=== PATIENT | female | born 1950 | race Two or more races ===

== ENCOUNTER 2023-01-14 07:45 | Emergency (ER) | payer OTHER ==
[2023-01-14 08:05] VITALS: BP 151/81; PULSE 67; RESP 18; TEMP 98.2; BMI 32.5
[2023-01-14] MEDS ORDERED: SODIUM CHLORIDE 1,000 ML IV STA (08:21)
[2023-01-14] MEDS ORDERED: ONDANSETRON 4 MG/2 ML VIAL IVPUSH ONE (08:21)
[2023-01-14] MEDS ORDERED: ACETAMINOPHEN 1000 MG/100 ML BAG IVPB ONE (08:21)
[2023-01-14] MEDS ORDERED: ACETAMINOPHEN INJECTION 100 ML IVPB ONE (08:23)
[2023-01-14] MEDS ORDERED: ONDANSETRON 4 MG/2 ML VIAL ONE (08:23)
[2023-01-14 08:32] LABS: HEMATOCRIT 37.7 % (32.4-45.2); HEMOGLOBIN 12.5 G/dL (10.7-15.3); MCH 28.4 pg (25.7-33.7); MCHC 33.2 g/dl (32.0-36.0); MEAN CELL VOLUME 85.6 fl (80-96); MEAN PLT VOLUME 9.9 fl (7.5-11.1); PLATELET COUNT 188.4 10^3/uL (134-434); RBC 4.41 10^6/uL (3.60-5.2); RDW 14.4 % (11.6-15.6); WHITE BLOOD COUNT 8.7 10^3/uL (4.0-10.8)
[2023-01-14 08:36] LABS: ALBUMIN 4.5 g/dl (3.4-5.0); BILIRUBIN,TOTAL 0.7 mg/dl (0.2-1); BLOOD UREA NITROGEN 13.6 mg/dl (7-18); CALCIUM 9.4 mg/dl (8.5-10.1); CREATININE 0.9 mg/dl (0.6-1.3); SGOT/AST 17.7 U/L (15-37); SGPT/ALT 14.6 U/L (7-52); TOT PROT 6.7 g/dl (6.4-8.2)
[2023-01-14 08:37] LABS: POTASSIUM 4.3 mmol/L (3.5-5.1)
[2023-01-14 08:43] LABS: PLATELET ESTIMATE ADEQUATE
== END 2023-01-14 10:28 | disposition home or self-care (01) ==
LOC: FER 07:45
PROC: 3E033NZ Introduction of Analgesics, Hypnotics, Sedatives into Peripheral Vein, Percutaneous Approach (ICD-10-PCS; principal; 2023-01-14)
PROC: 3E033GC Introduction of Other Therapeutic Substance into Peripheral Vein, Percutaneous Approach (ICD-10-PCS; 2023-01-14)
PROC: 3E0337Z Introduction of Electrolytic and Water Balance Substance into Peripheral Vein, Percutaneous Approach (ICD-10-PCS; 2023-01-14)
DX: R10.11 Right upper quadrant pain (principal); R11.2 Nausea with vomiting, unspecified; N20.0 Calculus of kidney
CPT/HCPCS: 36415; 74176-TC; 80053; 81003; 81015; 83690; 85027; 87086; 99284-25